=== PATIENT | male | born 1990 | race Hispanic/Latino ===

== ENCOUNTER 2017-12-27 23:14 | Emergency (ER) | payer SELFPAY ==
[2017-12-28] MEDS ORDERED: KETOROLAC TROMETHAMINE 30MG/ML ONE (01:22)
[2017-12-28] MEDS ORDERED: DiphenhydrAMINE HCL 50 MG/ML VIAL ONE (01:22)
[2017-12-28] MEDS ORDERED: DEXAMETHASONE SOD PHOSPHATE 4 MG/ML 1ML VIAL ONE (01:22)
== END 2017-12-28 02:43 | disposition home or self-care (01) ==
LOC: EDBD 23:14 → EDH 23:14
DX: R51 Headache (principal)
CPT/HCPCS: 96374; 96375; 99284; J1100; J1200; J1885